=== PATIENT | male | born 1965 | race Caucasian/White ===

== ENCOUNTER → 2022-06-21 09:32 | Outpatient (CLI) | payer MEDICARE, OTHER, SELFPAY ==
--- NOTE | 2022-06-21 09:42 | US_ITS ---
FINAL REPORT CLINICAL HISTORY: Abdominal pain COMPARISON: None FINDINGS: LIMITED ABDOMINAL ULTRASOUND Sonographic images of the right upper quadrant were obtained. The pancreas is partially obscured.The liver has an unremarkable appearance. There is cholelithiasis without acute gallbladder disease. There is no evidence of biliary ductal dilatation.The common duct is normal. There is moderate right hydronephrosis and hydroureter. IMPRESSION: Moderate hydronephrosis. Consider CT for better assessment of etiology if unknown finding. Cholelithiasis. Reviewed, Interpreted and Dictated by Hossein Antonio MD Transcribed by Latosha Mcginnis Authenticated and [facility]
== END ==
PROVIDERS: PCP Family Medicine; Visit Provider Family Medicine
DX: R10.11 Right upper quadrant pain (principal)
CPT/HCPCS: 76705

== ENCOUNTER 2024-08-19 12:23 | Day surgery (SDC) | payer MEDICARE, OTHER, SELFPAY ==
[2024-08-17 12:52] VITALS: BMI 29.0
[2024-08-19 13:24] VITALS: BP 138/92; PULSE 108; RESP 18; TEMP 36.7; O2SAT 96
[2024-08-19] MEDS: LACTATED RINGERS 1000ML 1,000 ML 50 ML IV (13:34)
--- NOTE | 2024-08-19 13:48 | P.PNANES_ITS ---
[facility] Disclaimer: The information contained in this section may have been updated after the patient was seen, as this information can be updated by other users. Medical History (Updated 08/19/24 @ 13:44 by Ania Hall RN) Hx of blood clots Anxiety History of gastroesophageal reflux (GERD) Hyperlipidemia Hypertension Kidney stone Family History (Updated 08/19/24 @ 13:26 by Ania Hall RN) Other Alzheimer disease Dementia Social History (Updated 08/19/24 @ 13:27 by Ania Hall RN) Smoking Status: Current every day smoker alcohol intake: current alcohol intake frequency: holidays/special occasions only substance use type: denies use current occupational status: retired Travel in the last 8 weeks: None caffeine: Yes Have you lived/traveled outside [place] in past 30 days?: No Contact w/someone who lives/traveled outside US past 30 days?: No Exposure to someone with infectious disease in past 14 days?: No Do you have a fever (greater than 100.4 F or 38 C)?: No Have you tested positive for COVID-19: No Exposed to someone with COVID-19 in past 14 days?: No Do you have a sore throat?: No Do you have a cough?: No Do you have any weakness?: No Are you experiencing any nausea/vomitting?: No Do you have any diarrhea?: No Are you experiencing any unusual bleeding?: No Do you have any muscle aches/pain?: No Do you have any abdominal pain?: No Are you experiencing loss of taste or smell?: No [facility] Anesthesia Checklist Patient Identification Patient Identification: Arm Band, Family and Verbal (Name & ) Structural Data Admitted From: Home Planned Operative Procedure/s: EGD/Colonoscopy Consent for Planned Operative Procedure(s) Verified: Yes Verified Documents: Surgical Consent and History and Physical NPO Status Verified Time NPO: 12:30 Additional verifications Patient : No Anesthesia Reactions: No Cardiovascular Assessment Heart Sounds: S1 & S2 Pulse Rhythm: Irregular Peripheral Edema: No Airway Assessment Mallampati Score:: Class II C-Spine Mobility Assessed: Yes (FROM demonstrated) TMJ Mobility Assessed: Yes Dentition: Good Dentition (Nothing loose per pt.) Neurological Assessment Level of Consciousness: Awake, Alert, Appropriate and Follows Commands Hx Seizures: No Numbness or tingling in extremities: No Anesthesia Plan Anesthesia Risk discussed: Yes Anesthesia Plan: Verified ASA Class: III Anesthesia Type: MAC
--- NOTE | 2024-08-19 14:20 | EXP.HP ---
History of Present Illness *Admission Date: 08/19/24 *Reason for visit:: Nausea/GERD, heartburn and history of gastric ulcer plus positive Cologuard *History of present illness: Mr. Cardona is a 59-year-old gentleman with nausea, reflux, heartburn and prior history of gastric ulcer for upper endoscopy and positive Cologuard with rectal bleeding for colonoscopy who is here for diagnostic EGD and colonoscopy. The examination is deemed medically necessary for diagnostic EGD and colonoscopy. The patient has been seen, interviewed and examined prior to the procedure by both myself and the anesthesia provider. [facility] Disclaimer: The information contained in this section may have been updated after the patient was seen, as this information can be updated by other users. Medical History (Updated 08/19/24 @ 14:22 by Franklin Diamond II, MD) Hx of blood clots Anxiety History of gastroesophageal reflux (GERD) Hyperlipidemia Hypertension Kidney stone Family History (Updated 08/19/24 @ 13:26 by Ania Hall RN) Other Alzheimer disease Dementia Social History (Updated 08/19/24 @ 13:27 by Ania Hall RN) Smoking Status: Current every day smoker alcohol intake: current alcohol intake frequency: holidays/special occasions only substance use type: denies use current occupational status: retired Travel in the last 8 weeks: None caffeine: Yes Have you lived/traveled outside US in past 30 days?: No Contact w/someone who lives/traveled outside US past 30 days?: No Exposure to someone with infectious disease in past 14 days?: No Do you have a fever (greater than 100.4 F or 38 C)?: No Have you tested positive for COVID-19: No Exposed to someone with COVID-19 in past 14 days?: No Do you have a sore throat?: No Do you have a cough?: No Do you have any weakness?: No Are you experiencing any nausea/vomitting?: No Do you have any diarrhea?: No Are you experiencing any unusual bleeding?: No Do you have any muscle aches/pain?: No Do you have any abdominal pain?: No Are you experiencing loss of taste or smell?: No Other Medical History Have you received the Pneumonia Vaccine: No Review of Systems Review of Systems Review of systems (narrative): Negative *Cardiovascular Comments: Negative *Gastrointestinal Comments: Negative *Genitourinary Comments: Negative *Musculoskeletal Comments: Negative *Neurologic Comments: Negative Meds Home Medications and Allergies Home Medications ?Medication ?Instructions ?Recorded ?Confirmed ?Type alprazolam 0.5 mg tablet (Xanax) 0.5 mg PO DIRECTED 10/31/22 08/19/24 History atorvastatin 80 mg tablet 80 mg PO DAILY 10/31/22 08/19/24 History hydrocodone 7.5 mg-acetaminophen 0.5 tab PO BID 10/31/22 08/19/24 History 325 mg tablet losartan 100 mg tablet 100 mg PO DAILY 10/31/22 08/19/24 History pantoprazole 40 mg tablet,delayed 40 ea PO DAILY 10/31/22 08/19/24 History release warfarin 5 mg tablet 2.5 mg PO DAILY 10/31/22 08/19/24 History melatonin 3 mg tablet 3 mg PO HS 07/07/24 08/19/24 History [id number] 140 gram-sod sulfate 9 500 ml PO .COMPLEX colonscopy #3 ea 08/02/24 08/19/24 Rx gram-NaCl 5.2gram-KCl-C oral pwdr packs (Plenvu) acetaminophen 325 mg tablet 325 mg PO DAILY PRN . 08/19/24 08/19/24 History (Tylenol) New Prescriptions to Start Prescriptions: Allergies Allergy/AdvReac Type Severity Reaction Status Date / Time acetaminophen (From Percocet) Allergy Other Verified 08/19/24 13:15 oxycodone (From Percocet) Allergy Other Verified 08/19/24 13:15 Exam Data for Last 24 hours Vital signs and Labs for Last 24 Hours: Temp Pulse Resp BP Pulse Ox O2 Del Method 98.1 F 108 H 18 138/92 H 96 Room Air 08/19/24 13:24 08/19/24 13:24 08/19/24 13:24 08/19/24 13:24 08/19/24 13:24 08/19/24 13:24 I & O for Last 24 hours: Intake & Output 08/16/24 08/17/24 08/18/24 08/19/24 23:59 23:59 23:59 23:59 Weight 180 lb *Routine HEENT Exam Head: Present normocephalic Eye: Present EOMI and PERRL ENT: Present mucous membranes moist *Routine Neck Exam Neck: Present supple *Routine Respiratory Exam Respiratory: Present CTA bilaterally *Routine Cardiovascular Exam Cardiovascular: Present RRR *Routine Abdominal Exam Abdominal: Present soft and normoactive bowel sounds; Absent tenderness *Routine Rectal Exam Rectal:: deferred *Routine Genitalia Exam Genitalia:: deferred *Routine Extremities Exam Extremities: Absent cyanosis, clubbing or edema *Routine Skin Exam Skin: Present warm; Absent rash *Routine Neurological Exam Neurological: Present alert and oriented X3 Assessment and Plan *Assessment and plan (1) Nausea: Status: Acute Category: Medical Code(s): R11.0 - Nausea (2) Heartburn: Status: Acute Category: Medical Code(s): R12 - Heartburn (3) Belching: Status: Acute Category: Medical Code(s): R14.2 - Eructation (4) Dysphagia: Status: Acute Category: Medical Code(s): R13.10 - Dysphagia, unspecified (5) GERD (gastroesophageal reflux disease): Status: Acute Category: Medical Code(s): K21.9 - Gastro-esophageal reflux disease without esophagitis (6) LLQ abdominal pain: Status: Acute Category: Medical Code(s): R10.32 - Left lower quadrant pain (7) Rectal bleeding: Status: Acute Category: Medical Code(s): K62.5 - Hemorrhage of anus and rectum (8) Family history of colon cancer: Status: Acute Category: Medical Code(s): Z80.0 - Family history of malignant neoplasm of digestive organs (9) Positive colorectal cancer screening using Cologuard test: Status: Acute Category: Medical Code(s): R19.5 - Other fecal abnormalities Plan A/P: 1. Heartburn/GERD with nausea dysphagia for upper endoscopy and rectal bleeding with positive Cologuard and strong family history for colonoscopy is the preprocedural diagnosis. He has never had a colonoscopy. The patient will be anesthetized/sedated using MAC sedation. The patient has been seen and examined. Cardiac and lung assessment prior to the examination is stable. Proceed with planned diagnostic EGD and colonoscopy
[2024-08-19 14:30] VITALS: O2SAT 99
--- NOTE | 2024-08-19 14:30 | P.PCN_ITS ---
[facility] Procedure Note Date: 08/19/24 Time: 14:38 Procedure Note:: Upper Endoscopy Procedure Report: Esophagogastroduodenoscopy with cold biopsies and TTS balloon dilation Endoscopost: Franklin Diamond II, MD Referring Physician: Larry Valdez MD Date of Procedure: August 19, 2024 Equipment: Olympus GIF 190 standard upper endoscope Sedation: MAC sedation Indications: Mr. Cardona is a 59-year-old gentleman who is here for diagnostic EGD and colonoscopy. He has had dyspepsia, heartburn and reflux. He has a lot of belching, bloating and gassiness. He does take pantoprazole daily and recently increased this to twice daily. He does have some intermittent dysphagia, nausea and dry heaving. He also has had a positive Cologuard test in March 2024. He has never had a colonoscopy. He does note occasional bright red blood in the stool. His paternal uncle had colon cancer in his 60s. He does get some left lower quadrant abdominal pain that can radiate into the back. He reports regular bowel function without weight loss. Procedure: Prior to the procedure, a history and physical exam was performed, and patient's medications and allergies were reviewed. The risks, benefits and alternatives of the sedation and procedure were discussed with the patient. All questions were answered and informed consent was obtained. The patient was brought to the procedure room. Patient identification and proposed procedure were verified by the physician and the nurse. The patient was placed in a left lateral decubitus position and the scope was passed under direct vision. Throughout the procedure, the patient's blood pressure, pulse, and oxygen saturations were monitored continuously. The upper GI endoscopy was accomplished without difficulty. The patient tolerated the procedure well. Findings: The scope was passed directly into the upper esophagus and advanced to the third portion of the duodenum. The post bulbar duodenum and duodenal bulb were normal with normal mucosa and conniventes. The scope was withdrawn through a normal duodenal bulb and pylorus into the stomach. There was mild linear reactive gastropathy of the antrum. The body and fundus of the stomach were grossly normal with no ulcerations or erosions. Upon retroflexion there was a small sliding 2 cm hiatal hernia. Cold biopsies were taken from the antrum. Upon further inspection there was blanching of the mucosa of the rugal folds suggesting some perfusion defect/vascular perfusion. The scope was then withdrawn into the esophagus. There was no evidence of reflux esophagitis or Ivy's. There were tertiary contractions and evidence of moderate esophageal dysmotility. The entire esophagus was dilated to 60 Arabic/20 mm with a TTS hydrostatic balloon. There was some resistance at the cricopharyngeus. The remainder of the esophageal mucosa was normal. Impression: 1. Cricopharyngeal spasm status post dilation to 20 mm 2. Nonerosive GERD with moderate esophageal dysmotility and small 2 cm sliding hiatal hernia 3. Blanching of mucosa of proximal rugal folds?rule out profusion ab normality/arterial ischemia of the mesenteric arteries 4. Mild linear reactive gastropathy Plan: There was blanching of the mucosa suggestive of arterial perfusion defect and I do feel that the patient should have mesenteric CT angiogram. He is a every day smoker. I will follow-up the biopsies and proceed with diagnostic colonoscopy.
--- NOTE | 2024-08-19 14:42 | HMH.PROCNOTE ---
[facility] Procedure Note Date: 08/19/24 Time: 14:56 Procedure Note:: Colonoscopy Procedure Report: Colonoscopy with cold snare polypectomy Endoscopist: Franklin Diamond II, MD Referring physician: Larry Valdez MD Date of Procedure: August 19, 2024 Equipment: Olympus 190 variable stiffness pediatric colonoscope Sedation: MAC sedation Indication: Mr. Cardona is a 59-year-old gentleman who is here for diagnostic EGD and colonoscopy. He has had dyspepsia, heartburn and reflux. He has a lot of belching, bloating and gassiness. He does take pantoprazole daily and recently increased this to twice daily. He does have some intermittent dysphagia, nausea and dry heaving. He also has had a positive Cologuard test in March 2024. He has never had a colonoscopy. He does note occasional bright red blood in the stool. His paternal uncle had colon cancer in his 60s. He does get some left lower quadrant abdominal pain that can radiate into the back. He reports regular bowel function without weight loss. Procedure: Prior to the procedure, a history and physical exam was performed, and patient's medications and allergies were reviewed. The risks, benefits and alternatives of the sedation and procedure were discussed with the patient. All questions were answered and informed consent was obtained. The patient was brought to the procedure room. Patient identification and proposed procedure were verified by the physician and the nurse. The patient was placed in a left lateral decubitus position and the scope was passed under direct vision. Throughout the procedure, the patient's blood pressure, pulse, and oxygen saturations were monitored continuously. The colonoscopy was accomplished without difficulty. The patient tolerated the procedure well. Findings: On digital rectal examination there was normal rectal tone. There was very mild hemorrhoidal prolapse. There were no external hemorrhoids. The prostate was 2+, smooth, soft, symmetric without nodules. The colonoscope was introduced through the anal canal to the rectum and advanced to the cecum. The ileocecal valve and appendiceal orifice were identified. The scope was advanced a short distance into the ileum which appeared grossly normal. The scope was then withdrawn into the colon. There were 3 polyps (transverse x 2 (3 and 5 mm) and rectum x 1 (3 mm)). These were removed via cold snare polypectomy. There were scattered extensive diverticuli throughout the colon but more extensively in the descending and sigmoid colon (LEFT colon). The remainder of the cecum, ascending, transverse, descending, sigmoid and rectum are normal. Upon retroflexion within the rectum there were grade 2 internal hemorrhoids. The preparation was excellent throughout with Montgomery Preparation Score of 9. The cecal time was 12 minutes. Impression: 1. Diminutive colonic polyps x 3 2. Extensive pandiverticulosis 3. Grade 2 internal hemorrhoids Plan: I will follow-up the polyp histology and recommend repeat surveillance colonoscopy again in 5 to 7 years based upon the pathology. Symptomatically, I do feel that he has low-grade uncomplicated diverticulitis causing his left lower quadrant abdominal pain. I would encourage dietary measures and psyllium bulking fiber supplementation on a long-term daily maintenance basis.
[2024-08-19 15:02] VITALS: BP 107/67; PULSE 93; RESP 16; TEMP 36.2; O2SAT 93
[2024-08-19 15:12] VITALS: BP 107/77; PULSE 89; RESP 18; O2SAT 95
[2024-08-19 15:22] VITALS: BP 105/78; PULSE 84; RESP 18; O2SAT 98
[2024-08-19 15:32] VITALS: BP 109/76; PULSE 83; RESP 18; O2SAT 97
== END 2024-08-19 15:38 | disposition home or self-care (01) ==
PROVIDERS: PCP Family Medicine; Visit Provider Internal Medicine Gastroenterology
PROC: 0DJ08ZZ Inspection of Upper Intestinal Tract, Via Natural or Artificial Opening Endoscopic (ICD-10-PCS; CPT 45378; principal; 2024-08-19 14:00)
DX: K21.9 Gastro-esophageal reflux disease without esophagitis (principal); K31.9 Disease of stomach and duodenum, unspecified; K22.4 Dyskinesia of esophagus; K44.9 Diaphragmatic hernia without obstruction or gangrene; J39.2 Other diseases of pharynx; K63.5 Polyp of colon; K57.30 Diverticulosis of large intestine without perforation or abscess without bleeding; K64.1 Second degree hemorrhoids; R11.0 Nausea; R12 Heartburn; R14.2 Eructation; R13.10 Dysphagia, unspecified; R10.32 Left lower quadrant pain; K62.5 Hemorrhage of anus and rectum; Z80.0 Family history of malignant neoplasm of digestive organs; R19.5 Other fecal abnormalities; Z72.0 Tobacco use
CPT/HCPCS: 43239; 43249; 45385; C1726; J7120

== ENCOUNTER 2024-10-20 12:04 | Outpatient (CLI) | payer MEDICARE, OTHER, SELFPAY ==
[2024-10-20 12:37] LABS: Blood Urea Nitrogen 17 mg/dl (9-20)
[2024-10-20 12:38] LABS: Estimated Glomerular Filt Rate 99 ml/min (>60); GFR (African American) 120 ML/MIN (>60)
--- NOTE | 2024-10-20 13:00 | CT_ITS ---
FINAL REPORT TECHNIQUE: Thin section axial images were obtained through the abdomen after contrast injection per CT angiogram protocol. Multiplanar reconstruction images were obtained from the axial data. This exam was performed with techniques to keep radiation dose as low as reasonably achievable. This includes automated exposure control, adjustment of the MA and KVP, and iterative reconstruction technique. CLINICAL HISTORY: EGD show blanching mucosa-r/o mesenteric ischemia 100 cc isovue 370 40 saline COMPARISON: None FINDINGS: CTA: There is an infrarenal abdominal aortic aneurysm, which measures 4 cm in diameter and contains mural thrombus. There is mild stenosis of the origin of the celiac artery, with patent branch vessels. There is moderate superior mesenteric artery stenosis at its origin, and the visualized distal branches are patent. It is likely that the inferior mesenteric artery is occluded at its origin, and reconstitutes through collateral vessels. The renal arteries are patent without significant stenosis. 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 The right common iliac artery is patent, and also aneurysmal, measuring up to 28 mm in diameter. NONVASCULAR: Gallstones are present in the gallbladder. There is right sided hydronephrosis present, with dilation of the right ureter to the level of a 12 mm ureteral stone, well-seen on coronal image #39 of series 601. The solid abdominal organs are otherwise without acute abnormality. The GI tract is without acute abnormality. No lymphadenopathy or free fluid. IMPRESSION: Infrarenal abdominal aortic aneurysm measuring 4 cm in diameter with mural thrombus. 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 The GINNA is likely occluded at its origin, and reconstitutes via collateral vessels. 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 The right common iliac artery is also aneurysmally dilated, is patent with mural thrombus, and measures 28 mm in diameter. Hydronephrosis is present in the right kidney, and there is an obstructing stone in the right ureter measuring 12 mm in size. Reviewed, Interpreted and Dictated by Kelsea Benton MD Transcribed by Emmy Miller Authenticated and . [facility]
[2024-10-20] MEDS: 0.9 % SODIUM CHLORIDE 50 ML VIAL IV (13:25)
[2024-10-20] MEDS: IOPAMIDOL-370 (76%);100ML BOTTLE 100 ML IV (13:25)
== END 2024-10-20 23:59 | disposition home or self-care (01) ==
LOC: RAD 12:06
PROVIDERS: PCP Family Medicine; Visit Provider Internal Medicine Gastroenterology
DX: K55.1 Chronic vascular disorders of intestine (principal)
CPT/HCPCS: 36415; 74175; 82565; 84520; Q9967